=== PATIENT | male | born 1960 ===

== ENCOUNTER 2020-11-14 09:01 | Outpatient (CLI) | payer BC | END 2020-11-14 09:02 | disposition home or self-care (01) | LOC: CSHWCC 09:01 | PROVIDERS: ATTEND Nurse Practitioner Family | DX: T81.89XD Other complications of procedures, not elsewhere classified, subsequent encounter (principal); T81.32XD Disruption of internal operation (surgical) wound, not elsewhere classified, subsequent encounter; K57.92 Diverticulitis of intestine, part unspecified, without perforation or abscess without bleeding; G89.11 Acute pain due to trauma; D67 Hereditary factor IX deficiency | CPT/HCPCS: 99212; G0463 ==

== ENCOUNTER 2020-11-17 09:09 | Outpatient (CLI) | payer BC | END 2020-11-17 09:10 | disposition home or self-care (01) | LOC: CSHWCC 09:09 | PROVIDERS: ATTEND Nurse Practitioner Family | DX: T81.89XA Other complications of procedures, not elsewhere classified, initial encounter (principal); D67 Hereditary factor IX deficiency; G89.11 Acute pain due to trauma; K57.92 Diverticulitis of intestine, part unspecified, without perforation or abscess without bleeding; T81.32XS Disruption of internal operation (surgical) wound, not elsewhere classified, sequela | CPT/HCPCS: 99212; 99213; G0463 ==

== ENCOUNTER 2020-12-03 09:25 | Outpatient (CLI) | payer BC | END 2020-12-03 09:26 | disposition home or self-care (01) | LOC: CSHWCC 09:25 | PROVIDERS: ATTEND Nurse Practitioner Family | DX: T81.89XD Other complications of procedures, not elsewhere classified, subsequent encounter (principal); T81.32XD Disruption of internal operation (surgical) wound, not elsewhere classified, subsequent encounter; K57.92 Diverticulitis of intestine, part unspecified, without perforation or abscess without bleeding; G89.11 Acute pain due to trauma; D67 Hereditary factor IX deficiency | CPT/HCPCS: 11042; 97607 ==

== ENCOUNTER 2021-01-07 09:45 | Outpatient (CLI) | payer BC | END 2021-01-07 09:46 | disposition home or self-care (01) | LOC: CSHWCC 09:45 | PROVIDERS: ATTEND Nurse Practitioner Family | DX: T81.32XS Disruption of internal operation (surgical) wound, not elsewhere classified, sequela (principal); T81.89XD Other complications of procedures, not elsewhere classified, subsequent encounter; K57.92 Diverticulitis of intestine, part unspecified, without perforation or abscess without bleeding; G89.11 Acute pain due to trauma; D67 Hereditary factor IX deficiency | CPT/HCPCS: 99212; G0463 ==